=== PATIENT | male | born 1970 | race Caucasian/White ===

== ENCOUNTER 2016-11-06 00:54 | Emergency (ER) | payer OTHER ==
[~2016-11-06] VITALS: Ht 182.9 cm; Wt 106.6 kg
[2016-11-06 01:06] VITALS: BP 113/80
--- NOTE | 2016-11-06 01:15 | ED GENERAL ADULT ---
History of Present Illness General Chief Complaint: Allergy Symptoms Stated Complaint: "ALLERGIC REACTION TO MEDS,EYES/LT FACIAL SWELLING Source: patient Exam Limitations: no limitations Vital Signs & Intake/Output Vital Signs & Intake/Output Vital Signs Date Time Temp Pulse Resp B/P B/P Pulse O2 O2 Flow FiO2 Mean Ox Delivery Rate 11/06 0124 Room Air 11/06 0106 97.6 89 18 113/80 96 Room Air Allergies Coded Allergies: NO KNOWN ALLERGIES (10/02/12) Reconcile Medications Hydroxyzine Pamoate 50 MG CAPSULE 1 CAP PO TID allergies Triage Note: PT TO ED C/O ?ALLERGIC REACTION TO EITHER DOXY OR CIPRO EYE DROPS. IS TAKING DOXY FOR DX OF WALKING PNEUMONIA, IS TAKING CIPRO FOR BILATERAL PINK EYE. EYES VERY RED. PT STATES HE HAS NEW SWELLING UNDER LEFT EYE, SWELLING TO LEFT SIDE OF FACE THAT GOES TO UNDER LOWER JAW. HAS BEEN TAKING ABX FOR 3 DAYS. ALSO STARTED GENERIC FLEXERIL A WEEK AGO FOR BACK "INCEDENT" Triage Nurses Notes Reviewed? yes Onset: Gradual Duration: day(s):, waxing and waning Timing: recent history Injury Environment: home Severity: moderate Modifying Factors: Improves With: medication. Associated Symptoms: cough, "red eyes." HPI: 46-year-old gentleman, in prior good health, presents with cough left-sided mild facial swelling, and bilateral red eyes. He states that he had a guest live at his home for several days who had similar symptoms. He notes that for the past 4 days he has had the same type of symptoms. He went to an urgent care clinic where he was prescribed doxycycline for, "walking pneumonia, "as well as Cipro drops for bilateral otitis media. He notes that he has a mild cough, no longer with phlegm. He notes that he has bilateral eye discharge, mostly watery. However, he notes that his eyes have become increasingly bloodshot. He has no change in vision. No fever, chills, headache, syncopal type symptoms, chest pain. He is otherwise well and has no other concerns. Past History Travel History Traveled to [place] past 21 day No Medical History Any Pertinent Medical History? 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 No Review of Systems Review of Systems Constitutional: Reports: no symptoms. EENTM: Reports: no symptoms. Respiratory: Reports: no symptoms. Cardiovascular: Reports: no symptoms. GI: Reports: no symptoms. Genitourinary: Reports: no symptoms. Musculoskeletal: Reports: no symptoms. Skin: Reports: no symptoms. Neurological/Psychological: Reports: no symptoms. Hematologic/Endocrine: Reports: no symptoms. Immunologic/Allergic: Reports: no symptoms. All Other Systems: Reviewed and Negative Physical Exam Physical Exam General Appearance: well developed/nourished, mild distress Head: atraumatic, normal appearance Eyes: Bilateral: PERRL, EOMI, other (Conjunctival injection bilater). Ears, Nose, Throat: normal pharynx, left periorbital mild swelling. No tenderness. No lymphangitic streaking. No sign of infection. Neck: normal inspection, supple, full range of motion Respiratory: normal breath sounds, chest non-tender, no respiratory distress, quiet respiration Cardiovascular: regular rate/rhythm Gastrointestinal: normal bowel sounds, soft, non-tender, no organomegaly Back: normal inspection, normal range of motion Extremities: normal inspection, normal capillary refill, normal range of motion, no edema Neurologic/Psych: no motor/sensory deficits, awake, alert, oriented x 3 Skin: intact, normal color, warm/dry Core Measures ACS in differential dx? No CVA/TIA Diagnosis: No Severe Sepsis Present: No Septic Shock Present: No Progress Differential Diagnoses I considered the following diagnoses in my evaluation of the patient: Allergic reaction versus bacterial conjunctivitis versus other. Plan of Care: Patient is artery tasting Doxy orally and Cipro ophthalmic drops. I do not believe he has superimposed bacterial infection other than what he is artery being treated for. The swelling around the left face is likely inflammatory. I prescribed hydroxyzine. Advised that he follow-up with an eye doctor tomorrow and provided him resources. I advise close follow-up. Initial ED EKG: none Departure Departure Disposition: HOME OR SELF CARE Condition: Stable Clinical Impression Primary Impression: Allergic reaction Secondary Impressions: Conjunctivitis Referrals: ARISTIDES KIM (PCP/Family) Departure Forms: Customer Survey General Discharge Information Prescriptions: Current Visit Scripts Hydroxyzine Pamoate 1 CAP PO TID #30 CAP Critical Care Note Critical Care Note Critical Care Time: non-applicable
[2016-11-06] MEDS ORDERED: HYDROXYZINE PAM50 M1 PO (01:24)
== END 2016-11-06 01:32 ==
LOC: ERH 00:54
DX: T78.40XA Allergy, unspecified, initial encounter (principal); H10.9 Unspecified conjunctivitis

== ENCOUNTER 2017-08-08 11:01 | Emergency (ER) | payer OTHER ==
[~2017-08-08] VITALS: Ht 182.9 cm; Wt 104.3 kg
[~2017-08-08 11:01] MED LIST: HYDROXYZINE PAM50 M1 PO
--- NOTE | 2017-08-08 12:10 | ED SKIN/ALLERGY COMPLAINT ---
History of Present Illness General Chief Complaint: Skin Rash/ Abcess Stated Complaint: RASH ON BACK OF NECK AND RIGHT ARM X6 DAYS Source: patient Exam Limitations: no limitations Vital Signs & Intake/Output Vital Signs & Intake/Output Vital Signs Date Time Temp Pulse Resp B/P B/P Pulse O2 O2 Flow FiO2 Mean Ox Delivery Rate 08/08 1241 97.9 68 18 108/70 98 Room Air 08/08 1214 98 Room Air 08/08 1112 98.1 78 20 112/85 96 Room Air Allergies Coded Allergies: NO KNOWN ALLERGIES (10/02/12) Reconcile Medications Hydroxyzine Pamoate 50 MG CAPSULE 1 CAP PO TID allergies Ibuprofen 800 MG TABLET 1 TAB PO TID PRN pain Valacyclovir HCl (Valtrex) 1,000 MG TABLET 1 TAB PO TID shingles Triage Note: ITCHY "RASH ON BACK OF NECK AND RIGHT CHEST AND ARM X 6 DAYS Triage Nurses Notes Reviewed? yes Onset: Gradual Duration: day(s): Timing: recent history Severity: moderate HPI: 47-year-old male presents emergency department complaining of rash 5 days. Patient states that rashes been gradually worsening, described as painful, burning. Patient notes rash to only right neck and right upper chest. He has no history of a similar rash in the past. Patient has no known change in medication, detergents, soaps. No known exposure to allergens. Patient has a history of chickenpox when he was young child, no history of shingles. Patient denies fevers, chills, abdominal pain, vomiting. (Rossi Flores) Past History Travel History Traveled to [place] past 21 day No Medical History Any Pertinent Medical History? 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 No (Rossi Flores) Review of Systems Review of Systems Constitutional: Reports: no symptoms. EENTM: Reports: no symptoms. Respiratory: Reports: no symptoms. Cardiovascular: Reports: no symptoms. GI: Reports: no symptoms. Genitourinary: Reports: no symptoms. Musculoskeletal: Reports: no symptoms. Skin: Reports: see HPI. Neurological/Psychological: Reports: no symptoms. Hematologic/Endocrine: Reports: no symptoms. Immunologic/Allergic: Reports: no symptoms. All Other Systems: Reviewed and Negative (Rossi Flores) Physical Exam Physical Exam General Appearance: well developed/nourished, no apparent distress, alert, awake Head: atraumatic, normal appearance Eyes: Bilateral: normal appearance, PERRL, EOMI. Ears, Nose, Throat: normal pharynx, TMs WNL, vesicles and erythema of pinna Neck: full range of motion, no midline tenderness, erythematous vesicular lesions to right lateral neck Respiratory: no respiratory distress Back: normal inspection, normal range of motion Extremities: normal inspection, normal range of motion Neurologic/Psych: awake, alert, oriented x 3 Skin: erythematous vesicular rash to right lateral neck and right upper anterior chest (Rossi Flores) Progress Differential Diagnosis: abscess/cellulitis, allergic reaction, contact dermatitis, drug reaction, shingles, urticaria Plan of Care: Rash is erythematous and vesicular, appears like shingles rash, follows one- sided dermatomal distribution. Patient started on valacyclovir. He was instructed to take ibuprofen and Tylenol for pain. He will return with worsening symptoms or concerns. He is in no acute distress, nontoxic appearing, vital signs are stable. No lesions detected and ears, pharynx, around eyes. The patient agrees with the plan of care. (Rossi Flores) Departure Departure Disposition: HOME OR SELF CARE Condition: Stable Clinical Impression Primary Impression: Shingles Referrals: Unknown (PCP/Family) Additional Instructions: Begin Valacyclovir regarding your shingles rash. Take ibuprofen 800 mg for pain. You may also take Tylenol 500-1000 mg for pain. Return with worsening symptoms or concerns. Please note that there might be incidental findings in your evaluation that are unrelated to the current emergency department visit. Please notify your primary care doctor about this emergency department visit in order to obtain and review all of the testing performed so that these incidental findings can be monitored as needed. If you had an x-ray performed, please understand that some fractures may not be seen on the initial set of x-rays. If your symptoms persist you might need a repeat set of x-rays to check for such a fracture. If you had a laceration evaluated, please understand that foreign bodies such as glass or wood may not be visible to the naked eye or on plain x-rays. If the wound becomes red, swollen, increasingly more painful or if there is any drainage from the wound, please have it reevaluated by a physician for the possibility of a retained foreign body. If you're unable to follow up as outlined in the discharge instructions please return to the emergency department. Thank you for choosing the [facility] Emergency Department for your care. It was a pleasure to serve you today. Departure Forms: Customer Survey General Discharge Information Prescriptions: Current Visit Scripts Valacyclovir HCl (Valtrex) 1 TAB PO TID #21 TAB Ibuprofen 1 TAB PO TID PRN pain #30 TAB (Annette AGUSTIN,Rossi Vicente) PA/CATERPILLAR MECHANIC Co-Sign Statement Statement: ED Attending supervision documentation- I saw and evaluated the patient. I have also reviewed all the pertinent lab results and diagnostic results. I agree with the findings and the plan of care as documented in the PA's/CATERPILLAR MECHANIC's documentation. x I have reviewed the ED Record and agree with the PA's/CATERPILLAR MECHANIC's documentation. [] Additions or exceptions (if any) to the PAs/CATERPILLAR MECHANIC's note and plan are summarized below: [] (Marinao MARCUM,Johnny)
[2017-08-08] MEDS ORDERED: VALTREX1000 MG PO (12:26)
[2017-08-08] MEDS ORDERED: IBUPROFEN800 M1 PO (12:26)
[2017-08-08 12:41] VITALS: BP 108/70
== END 2017-08-08 12:41 ==
LOC: ERH 11:01
DX: B02.9 Zoster without complications (principal)